=== PATIENT | male | born 1935 | race Asian ===

== ENCOUNTER 2019-02-04 10:21 | Emergency (ER) | payer MEDICARE, MEDICAID, OTHER ==
[~2019-02-04] VITALS: Ht 167.6 cm; Wt 79.4 kg
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
[2019-02-04 11:02] VITALS: BP 154/82
--- NOTE | 2019-02-04 11:24 | NUR ---
ED Nurse Note: [employer] at bedside
--- NOTE | 2019-02-04 11:49 | Diagnostic Imaging Report ---
Indications: Left hip pain Findings: Two views of the left hip were obtained. No acute fracture is demonstrated. Alignment of the hip is within normal limits. Soft tissues are unremarkable. Bones are osteopenic. Degenerative changes of the lower lumbar spine noted. Impression: Negative for acute injury.
[2019-02-04] MEDS ORDERED: TYLENOL EXTRA500 MG ORAL (12:04)
[2019-02-04 12:11] VITALS: BP 150/80
--- NOTE | 2019-02-04 12:17 | NUR ---
ED Nurse Note: pt given aci and script verbalized understanding ambulated out of er with steady gait.
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
== END 2019-02-04 12:19 | disposition home or self-care (01) ==
LOC: EDBD 10:21 → EMR 10:53
DX: M25.552 Pain in left hip (principal); M85.88 Other specified disorders of bone density and structure, other site
CPT/HCPCS: 73502; 99283

== ENCOUNTER 2019-04-15 09:44 | Emergency (ER) | payer MEDICARE, MEDICAID, OTHER ==
[~2019-04-15] VITALS: Ht 170.2 cm; Wt 73.0 kg
[~2019-04-15 09:44] MED LIST: TYLENOL EXTRA500 MG ORAL
[2019-04-15 09:47] VITALS: BP 134/56
[2019-04-15] MEDS ORDERED: AMOXICILLIN500 MG ORAL (10:03)
[2019-04-15] MEDS ORDERED: TYLENOL EXTRA500 MG ORAL (10:03)
[2019-04-15 10:05] VITALS: BP 134/56
--- NOTE | 2019-04-15 10:05 | NUR ---
ED Nurse Note: pt walked in to ER with a daughter from home due to Lt earache. pt aao x4 and ambulatory. pt denied trauma or injury. skin clean and intact. calm and cooperative. pt is in gown and on satellite project site monitor.
--- NOTE | 2019-04-15 10:10 | NUR ---
ER DISCHARGE NOTE: Patient is cleared to be discharged per ERMD, pt is aox4, accompanied by a daughter, on room air, with stable vital signs. pt was given dc and electronical prescription instructions, pt was able to verbalize understanding, pt id band removed. pt is able to ambulate with steady gait. pt took all belongings.
--- NOTE | 2019-04-15 10:25 | Emergency Room Report ---
History of Present Illness General Chief Complaint: Earache Source: Patient Present Illness HPI 83-year-old male presents ED for evaluation. Complaining of left ear pain x1 week. Denies any injury. Denies any fevers or chills. Denies cough. Pain is dull, 7 out of 10, nonradiating. Denies neck stiffness. Denies photophobia or blurry vision. Denies sick contacts or recent travel. No other aggravating relieving factors. Denies any other associated symptoms Allergies: Coded Allergies: NO KNOWN DRUG ALLERGIES (Unverified Allergy, Unknown, 09/01/14) Patient History Past Medical History: DM, HTN Past Surgical History: none Pertinent Family History: none Social History: Denies: smoking, alcohol use, drug use Immunizations: UTD Reviewed Nursing Documentation: PMH: Agreed; PSxH: Agreed Nursing Documentation-PMH Past Medical History: No History, Except For Hx Cardiac Problems: Yes - HTN, Hx Hypertension: Yes Hx Asthma: No Hx COPD: No Hx Diabetes: Yes Hx Cancer: No Hx Gastrointestinal Problems: No Hx Neurological Problems: Yes Hx Cerebrovascular Accident: No Review of Systems All Other Systems: negative except mentioned in HPI Physical Exam Vital Signs Date Time Temp Pulse Resp B/P (MAP) Pulse Ox O2 Delivery O2 Flow Rate FiO2 04/15/19 09:47 98.1 93 16 134/56 (82) 94 Room Air Sp02 EP Interpretation: reviewed, normal General Appearance: no apparent distress, alert, GCS 15, non-toxic Head: normocephalic Eyes: bilateral eye normal inspection, bilateral eye PERRL ENT: hearing grossly normal, normal pharynx, no angioedema, normal voice, other - L TM poor light reflex Neck: full range of motion, supple, no meningismus Respiratory: normal inspection Cardiovascular #1: normal inspection Gastrointestinal: normal inspection Rectal: deferred Genitourinary: no CVA tenderness Musculoskeletal: normal inspection Neurologic: alert, oriented x3, responsive, motor strength/tone normal, sensory intact, speech normal Psychiatric: normal inspection Skin: no rash Lymphatic: no adenopathy Medical Decision Making Diagnostic Impression: Primary Impression: Otitis media Qualified Codes: H66.90 - Otitis media, unspecified, unspecified ear ER Course Hospital Course 83-year-old M presents to ED with pain L ear. no fever. Differential diagnoses include: TM perforation, otitis externa, otitis media Clinical course Patient placed on stretcher. After initial history, physical exam reveals an elderly male in no acute distress. L TM poor light reflex. Remainder of physical exam unremarkable. clinical findings consistent with otitis media discussed findings with patient and family. Will discharge with antibiotics, Tylenol. Safe for discharge for close outpatient follow-up. Will provide referrals Diagnosis - otitis media Stable and discharged to home with Rx amoxicillin, tylenol. Followup with PMD. Return to ED if symptoms recur or worsen Last Vital Signs Date Time Temp Pulse Resp B/P (MAP) Pulse Ox O2 Delivery O2 Flow Rate FiO2 04/15/19 10:10 97.7 82 14 127/64 98 Room Air Status: improved Disposition: HOME, SELF-CARE Condition: Stable Scripts Amoxicillin* (AMOXIL*) 500 Mg Capsule 500 MG ORAL THREE TIMES A DAY for 10 Days, #30 CAP Prov: Billy Pearson MD 04/15/19 Acetaminophen* (TYLENOL EXTRA STRENGTH*) 500 Mg Tablet 500 MG ORAL Q8H PRN for Prn Headache/Temp > 101, #30 TAB 0 Refills Prov: Billy Pearson MD 04/15/19 Referrals: Iris Bailey. [facility] Patient Instructions: Otitis Media, Adult Billy Pearson MD Apr 15, 2019 10:25
== END 2019-04-15 10:10 | disposition home or self-care (01) ==
LOC: EMR 10:10
DX: H66.90 Otitis media, unspecified, unspecified ear (principal); E11.9 Type 2 diabetes mellitus without complications; I10 Essential (primary) hypertension
CPT/HCPCS: 99282

== ENCOUNTER 2019-08-26 10:26 | Emergency (ER) | payer MEDICARE, OTHER, MEDICAID ==
[~2019-08-26] VITALS: Ht 167.6 cm; Wt 63.5 kg
[~2019-08-26 10:26] MED LIST changes: +AMOXICILLIN500 MG ORAL
--- NOTE | 2019-08-26 10:45 | NUR ---
ED Nurse Note:pt. came from home with small red rash on bilateral arms
[2019-08-26] MEDS ORDERED: CEPHALEXIN500 MG ORAL (10:49)
--- NOTE | 2019-08-26 11:05 | NUR ---
ER DISCHARGE NOTE: Patient is cleared to be discharged per ERMD, pt is aox4, on room air, with stable vital signs. pt was given dc instructions, pt was able to verbalize understanding, pt is able to ambulate with steady gait. pt took all belongings.
[2019-08-26 11:18] VITALS: BP 150/77
--- NOTE | 2019-08-26 14:14 | Emergency Room Report ---
History of Present Illness General Chief Complaint: Pain Source: Patient, Significant Other Present Illness HPI 83-year-old male presents ED for evaluation. Patient states he has a rash to his arms and to his chest. Comes and goes. Has been there for some time now. Denies pain. Denies itchiness. Denies any sick contacts or recent travel. Denies any known food or drug allergies. Denies fevers or chills. No other aggravating relieving factors. Denies any other associated symptoms Allergies: Coded Allergies: NO KNOWN DRUG ALLERGIES (Unverified Allergy, Unknown, 09/01/14) Patient History Past Medical History: DM, HTN, psych hx Social History: Denies: smoking, alcohol use, drug use Immunizations: UTD Reviewed Nursing Documentation: PMH: Agreed; PSxH: Agreed Nursing Documentation-PMH Hx Cardiac Problems: Yes - HTN, Hx Hypertension: Yes Hx Asthma: No Hx COPD: No Hx Diabetes: Yes Hx Cancer: No Hx Gastrointestinal Problems: No Hx Neurological Problems: Yes - Depression Hx Cerebrovascular Accident: No Review of Systems All Other Systems: negative except mentioned in HPI Physical Exam Vital Signs Date Time Temp Pulse Resp B/P (MAP) Pulse Ox O2 Delivery O2 Flow Rate FiO2 08/26/19 10:29 97.5 86 20 150/77 (101) 93 Room Air Sp02 EP Interpretation: reviewed, normal General Appearance: no apparent distress, alert, GCS 15, non-toxic Head: normocephalic Eyes: bilateral eye normal inspection, bilateral eye PERRL ENT: normal ENT inspection Neck: normal inspection Respiratory: chest non-tender, lungs clear, normal breath sounds, speaking full sentences Cardiovascular #1: regular rate, rhythm, no edema Gastrointestinal: normal bowel sounds, non tender, soft, non-distended, no guarding, no rebound Rectal: deferred Genitourinary: no CVA tenderness Musculoskeletal: normal inspection Neurologic: alert, motor strength/tone normal, oriented x3, sensory intact, responsive, speech normal Psychiatric: judgement/insight normal, memory normal, mood/affect normal, no suicidal/homicidal ideation Skin: rash - papular rash to arms, chest, cirumferentially around L nipple Lymphatic: normal inspection Medical Decision Making Diagnostic Impression: Primary Impression: Rash ER Course Hospital Course 83 yo M presents to ED w/ rash Differential diagnoses include: Cellulitis, dermatitis, insect bite, abscess Clinical course Patient placed on stretcher. After initial history, physical exam reveals an elderly male in no acute distress. On exam there is a papular rash noted to the arms and to the chest. Especially around the left nipple. No induration. None erythematous base. Vital stable. Patient appears well, nontoxic appearing. Discussed findings with the patient. Will prescribe antibiotics. However I do recommend outpatient dermatology evaluation. Patient does not have a PMD. I will provide referrals Diagnosis - rash stable and discharged to home with prescription for keflex. Instructed to followup with PMD. Instructed return to ED if symptoms recur or worsen Last Vital Signs Date Time Temp Pulse Resp B/P (MAP) Pulse Ox O2 Delivery O2 Flow Rate FiO2 08/26/19 11:18 97.5 20 150/77 93 Room Air 08/26/19 10:29 86 Status: improved Disposition: HOME, SELF-CARE Condition: Stable Scripts Cephalexin* (KEFLEX*) 500 Mg Capsule 500 MG ORAL EVERY 6 HOURS for 7 Days, #28 CAP Prov: Billy Pearson MD 08/26/19 Referrals: NOT CHOSEN IPA/,REFERRING (PCP) [facility] Patient Instructions: Folliculitis Billy Pearson MD Aug 26, 2019 14:14
== END 2019-08-26 11:10 | disposition home or self-care (01) ==
LOC: EMR 10:50
DX: R21 Rash and other nonspecific skin eruption (principal); E11.9 Type 2 diabetes mellitus without complications; I10 Essential (primary) hypertension
CPT/HCPCS: 99282

== ENCOUNTER 2019-12-01 09:18 | Emergency (ER) | payer MEDICARE, OTHER, MEDICAID ==
[~2019-12-01] VITALS: Ht 167.6 cm; Wt 68.0 kg
[~2019-12-01 09:18] MED LIST changes: +CEPHALEXIN500 MG ORAL
[2019-12-01 09:41] VITALS: BP 134/82
--- NOTE | 2019-12-01 09:51 | NUR ---
ED Nurse Note: Pt from home walked in due to congestion and productive coughing with yellow sputum x 3 days. Denies recent travel. aaoX4 and ambulatory with non labored breathing.
--- NOTE | 2019-12-01 10:04 | Emergency Room Report ---
History of Present Illness General Chief Complaint: Upper Respiratory Illness Source: Patient, Family Member, Medical Record Present Illness HPI Disclaimer: Please note that this report is being documented using [employer] technology. This can lead to erroneous entry secondary to incorrect interpretation by the dictating instrument. HPI: 84-year-old male presents for evaluation of cough. Symptoms present approximately 3 days. He notes a dry nonproductive cough that is worse at night. Notes feeling subjectively warm but no temperature readings were taken at home. He is afebrile here. He denies nasal congestion, shortness of breath , abdominal pain, vomiting, diarrhea, skin rash. Notes mild headache. Denies visual escobar symptoms, changes in coordination or balance, changes in strength. Notes a mild decrease in appetite. His and daughter at home home are experiencing similar symptoms. No recent travel reported. Denies history of smoking. Denies history of lung disease. PMH: Diabetes, hypertension PSH: Reviewed Allergies: None reported Social Hx: Non-smoker Allergies: Coded Allergies: NO KNOWN DRUG ALLERGIES (Unverified Allergy, Unknown, 09/01/14) COVID-19 Screening Contact w/high risk pt: No Recent Travel to affected area: No Experienced COVID-19 symptoms?: Yes COVID-19 symptoms experienced: Cough Nursing Documentation-PMH Past Medical History: No History, Except For Hx Cardiac Problems: Yes - HTN, Hx Hypertension: Yes Hx Asthma: No Hx COPD: No Hx Diabetes: Yes Hx Cancer: No Hx Gastrointestinal Problems: No Hx Neurological Problems: Yes - Depression Hx Cerebrovascular Accident: No Review of Systems All Other Systems: negative except mentioned in HPI Physical Exam Vital Signs Date Time Temp Pulse Resp B/P (MAP) Pulse Ox O2 Delivery O2 Flow Rate FiO2 12/01/19 09:41 98.1 75 16 134/82 93 Room Air General: Awake and alert, no acute distress HEENT: NC/AT. EOMI. Neck: Supple, trachea midline Chest Wall: No tenderness, no deformity Cardiovascular: RRR. S1 and S2 normal. No murmur appreciated Resp: Normal work of breathing. No cough, wheezing or crackles appreciated Abdomen: Abdomen is soft, nondistended. Nontender Skin: Intact. No abrasions, laceration or rash over the exposed skin MSK: Normal tone and bulk. Moving all extremities. No obvious deformity. Neuro: Awake and alert. Mentating appropriately. Medical Decision Making ER Course 84-year-old male presents for evaluation of cough over the past 3 days. Differential includes but not limited to viral syndrome, pneumonia, bronchitis, URI, novel coronavirus infection. He is well-appearing, afebrile, normal work of breathing and clear lung sounds on exam. Chest x-ray shows no infiltrates or other acute findings. Based on the patient's presenting signs, symptoms and physical exam findings, the patient has been screened and is suspected to have COVID-19. Unfortunately, due to limited testing capabilities at our facility at this time we are unable to perform COVID-19 testing. The patient does not require hospitalization at this time. He will be discharged with strict quarantine precautions and can follow-up with his PMD to arrange for outpatient testing as it becomes available. I discussed reasons to return to the emergency department with patient and family. They understand agree with this treatment plan. Chest X-Ray Diagnostic Results Chest X-Ray Diagnostic Results : Chest X-Ray Ordered: Yes # of Views/Limited/Complete: 1 View Indication: Other - Cough EP Interpretation: Yes Interpretation: no consolidation, no effusion, no pneumothorax, other - Mild vascular congestion Impression: Other - No infiltrate. Mild congestion Electronically Signed by: Electronically signed by Dr. Sylvain Orr Last Vital Signs Date Time Temp Pulse Resp B/P (MAP) Pulse Ox O2 Delivery O2 Flow Rate FiO2 12/01/19 09:51 75 16 Room Air 12/01/19 09:41 98.1 134/82 (99) 93 Disposition: HOME, SELF-CARE Condition: Stable Referrals: NON PHYSICIAN (PCP) Sylvain Orr MD Dec 01, 2019 10:04
--- NOTE | 2019-12-01 10:05 | NUR ---
ED Nurse Note: ecological technical officer in the tent for CXR.
[2019-12-01 10:47] VITALS: BP 129/80
--- NOTE | 2019-12-01 10:47 | NUR ---
ER DISCHARGE NOTE: Patient is cleared to be discharged per ERMD, pt is aox4, on room air, with stable vital signs. pt was given dc instructions, pt was able to verbalize understanding, pt id band removed. pt is able to ambulate with steady gait. pt took all belongings and left with his .
--- NOTE | 2019-12-01 10:57 | Diagnostic Imaging Report ---
EXAM: XR Chest, 1 View CLINICAL HISTORY: COUGH TECHNIQUE: Frontal view of the chest. COMPARISON: No relevant prior studies available. FINDINGS: Lungs: Mild pulmonary vascular congestion. Subsegmental atelectasis versus infiltrates in bilateral lung bases. Pleural space: Unremarkable. The costophrenic angles are sharp. No visible pneumothorax. Heart: Unremarkable. No cardiomegaly. Mediastinum: Unremarkable. Bones/joints: Unremarkable. Vasculature: Tortuous aorta. IMPRESSION: 1. Mild pulmonary vascular congestion. 2. Subsegmental atelectasis versus infiltrates in bilateral lung bases.
== END 2019-12-01 10:47 | disposition home or self-care (01) ==
LOC: EMR 09:40
DX: R05 Cough (principal); R51 Headache; E11.9 Type 2 diabetes mellitus without complications; I10 Essential (primary) hypertension; F32.9 Major depressive disorder, single episode, unspecified
CPT/HCPCS: 71045; 99283